=== PATIENT | male | born 1980 ===

== ENCOUNTER 2017-03-14 03:19 | Inpatient (IN) | payer BC ==
[2017-03-14 03:19] VITALS: BMI 29.0
[2017-03-14 04:29] LABS: BASO # 0.1 K/uL (0.0-0.2); EOS # 0.1 K/uL (0.0-0.7); EOS % 0.9 % (0.0-4.0); HEMATOCRIT 46.6 % (35.0-51.0); LYMPH # 2.1 K/uL (1.0-4.3); LYMPH % 26.7 % (20.0-40.0); MEAN CELL VOLUME 84.7 fl (80.0-94.0); MEAN CORPUSCULAR HEMOGLOBIN 29.5 pg (27.0-31.0); MEAN CORPUSCULAR HGB CONC 34.9 g/dL (33.0-37.0); MEAN PLATELET VOLUME 8.1 fl (7.2-11.7); MONO # 0.4 K/uL (0.0-0.8); MONO % 5.2 % (0.0-10.0); NEUT # 5.3 K/uL (1.8-7.0); NEUT % 66.2 % (50.0-75.0); NRBC % 0.1 % (0.0-0.0); RED CELL DISTRIBUTION WIDTH 13.2 % (11.5-14.5)
--- NOTE | 2017-03-14 04:37 | ED PDOC ---
HPI: Psych/Substance Abuse Time Seen by Provider: 03/14/17 03:29 Chief Complaint (Nursing): Psychiatric Evaluation Chief Complaint (Provider): Psychiatric Evaluation History Per: Patient History/Exam Limitations: no limitations Onset/Duration Of Symptoms: Hrs (prior to arrival ) Additional History Per: Family (mother) Additional Complaint(s): 3:29 Giovanny Moscoso, 36 year old male brought to ED by EMS for crisis eval . The patient reportedly planned to hang himself . He was also reported to have barricaded himself in his room for the past 1 week. He reports feeling depressed and has suicidal ideations. Patient's mother presents to the ED following patient's arrival to ED. He denies A/V hallucinations. Past Medical History Reviewed: Historical Data, Nursing Documentation, Vital Signs Vital Signs: Last Vital Signs Temp 97.7 F 03/14/17 03:27 Pulse 120 H 03/14/17 03:27 Resp 18 03/14/17 03:27 BP 154/93 H 03/14/17 03:27 Pulse Ox 98 03/14/17 03:27 - Medical History PMH: Anxiety, Bipolar Disorder, Depression Denies: Diabetes, Hepatitis, HIV, HTN, Seizures, Sexually Transmitted Disease - Surgical History Surgical History: No Surg Hx - Family History Family History: States: Unknown Family Hx - Home Medications Home Medications: Ambulatory Orders Medication Instructions Recorded Gabapentin [Neurontin] 600 mg PO TID #90 tab 10/13/16 QUEtiapine [SEROquel] 300 mg PO HS #30 tab 10/13/16 Sertraline [Zoloft] 50 mg PO DAILY #30 tab 10/13/16 - Allergies Allergies/Adverse Reactions: Allergies Allergy/AdvReac Type Severity Reaction Status Date / Time No Known Allergies Allergy Verified 03/14/17 03:26 Review of Systems ROS Statement: Except As Marked, All Systems Reviewed And Found Negative Psych: Positive for: Suicidal ideation Physical Exam - Reviewed Nursing Documentation Reviewed: Yes Vital Signs Reviewed: Yes - Physical Exam Appears: Positive for: Non-toxic, No Acute Distress Head Exam: Positive for: ATRAUMATIC, NORMOCEPHALIC Skin: Positive for: Normal Color, Warm, Dry Eye Exam: Positive for: Normal appearance ENT: Positive for: Normal ENT Inspection Neck: Positive for: Normal, Painless ROM, Supple Cardiovascular/Chest: Positive for: Regular Rate, Rhythm, Chest Non Tender Respiratory: Positive for: Normal Breath Sounds. Negative for: Respiratory Distress Gastrointestinal/Abdominal: Positive for: Normal Exam, Soft. Negative for: Tenderness Back: Positive for: Normal Inspection Extremity: Positive for: Normal ROM. Negative for: Deformity Neurologic/Psych: Positive for: Alert, Oriented (x3) - Laboratory Results Result Diagrams: 03/14/17 04:21 03/14/17 04:21 - ECG O2 Sat by Pulse Oximetry: 98 (RA) Pulse Ox Interpretation: Normal Medical Decision Making Medical Decision Makin:29 Initial Impression: 36 year old male with a history of depression. Initial Plan: * Alcohol Serum Stat * CMP Stat * Drug Screen, Urine Stat * CBC (With Differential) Stat * Accucheck Stat * 1:1 Obs for Suicide Precaution Cont Labs reviewed show no clinically significant abnormalities Patient evaluated by crisis and will require admission pending consent on sobriety Dx Major Depression Fair Patient is medeically stable for psychiatric admission Scribe Attestation: Documented by Nikki Valencia, acting as a scribe for Bassam Guaman MD. Provider Scribe Attestation: All medical record entries made by the Scribe were at my direction and personally dictated by me. I have reviewed the chart and agree that the record accurately reflects my personal performance of the history, physical exam, medical decision making, and the department course for this patient. I have also personally directed, reviewed, and agree with the discharge instructions and disposition. ED OBSERVATION Date of observation admission: 03/14/17 Time of observation admission: 04:00 - Observation admission statement Patient is being placed in observation because:: Time-extensive ED evaluation. - Goals of Observation Goals of observation are:: Results of ED workup, crisis evaluation, and eventual disposition. Disposition - Clinical Impression Clinical Impression: Major depression - Patient ED Disposition Is Patient to be Admitted: No - Disposition Disposition Time: 07:00 Condition: FAIR - Pt Status Changed To: Hospital Disposition Of: Inpatient - Admit Certification Admit to Inpatient:: After my assessment, the patient will require hospitalization for at least two midnights. This is because of the severity of symptoms shown, intensity of services needed, and/or the medical risk in this patient being treated as an outpatient. - POA Present On Arrival: None
[2017-03-14 04:42] LABS: ALB/GLOB RATIO 1.4 (1.0-2.1); ALCOHOL SERUM 243 mg/dl (0-10); ALKALINE PHOSPHATASE 107 U/L (38-126); ALT/SGPT 60 U/L (21-72); AST/SGOT 60 U/L (17-59); BILIRUBIN,TOTAL 0.5 mg/dl (0.2-1.3); BLOOD UREA NITROGEN 15 mg/dl (9-20); CALCIUM 9.4 mg/dL (8.4-10.2); CARBON DIOXIDE 25 mmol/L (22-30); CHLORIDE 103 mmol/L (98-107); GFR AFRICAN-AMERICAN > 60; GLUCOSE,RANDOM 103 mg/dL (75-110); POTASSIUM 3.8 MMOL/L (3.6-5.0); SODIUM 146 mmol/l (132-148); TOTAL PROTEIN 8.2 G/DL (6.3-8.2)
--- NOTE | 2017-03-14 06:31 | ED PDOC ---
- Laboratory Results Result Diagrams: 03/14/17 04:21 03/14/17 04:21 - ECG O2 Sat by Pulse Oximetry: 98 (RA) Pulse Ox Interpretation: Normal Medical Decision Making Medical Decision Makin:30 Patient signed out to Provider by Arleth Michel PA-C. 7:00 Patient signed out to Dr. Dwyer. Scribe Attestation: Documented by Nikki Valencia, acting as a scribe for Bassam Guaman MD. Provider Scribe Attestation: All medical record entries made by the Scribe were at my direction and personally dictated by me. I have reviewed the chart and agree that the record accurately reflects my personal performance of the history, physical exam, medical decision making, and the department course for this patient. I have also personally directed, reviewed, and agree with the discharge instructions and disposition. Disposition - Clinical Impression Clinical Impression: Major depression - POA Present On Arrival: None - Disposition Disposition: Routine/Home Disposition Time: 05:00 Condition: FAIR
[2017-03-14] MEDS ORDERED: DiphenhydrAMINE 50 mg/ml Inj IM PRN (11:57)
[2017-03-14] MEDS ORDERED: Alum-Mag Hydrox-Simethicone Susp (30 mL) PO PRN (11:57)
[2017-03-14] MEDS ORDERED: Magnesium Hydroxide Susp 30 ml UD PO PRN (11:57)
--- NOTE | 2017-03-14 12:08 | PCM.PSYCH ---
Initial Psychiatric Evaluation - Initial Psychiatric Evaluation Type of Admission: Voluntary Legal Status: Capacity Chief Complaint (in patient's own words): i locked myself in a room for a week Patient's Reaction to Hospitalization: cooperative History of Present Illness and Precipitating Events: pt with history of alcohol dependence, substance abuse, bipolar disorder. has been hospitalized in may 2016 and september 2016 here at [facility]. pt states he was sober until about a month ago. he did not follow up with outpt referrals. he states he was starting to become depressed and overwhelmed- bills, has another dui and will have to wear an ankle bracelet and has lost license for 10 years. pt states he became more depressed, hopeless and suicidal. he states for the last week he locked himself in his room and drank alcohol every day. he states he had razors and had thoughts to cut his own wrists or neck. he states his mother finally called the police who brought him here. the patient is seeking help. Current Medications: Active Medications Generic Name Dose Route Start Last Admin Trade Name Wesleyq PRN Reason Stop Dose Admin Acetaminophen 650 mg 03/14/17 11:57 Tylenol 325mg Tab PO Q4 PRN Pain, moderate (4-7) Al Hydrox/Mg Hydrox/Simethicone 30 ml 03/14/17 11:57 Maalox Plus 30 Ml PO Q4 PRN Dyspepsia Diphenhydramine HCl 50 mg 03/14/17 11:57 Benadryl IM Q6 PRN Extrapyramidal S/S Unable PO Diphenhydramine HCl 50 mg 03/14/17 11:57 Benadryl PO Q6 PRN Extrapyramidal Symptoms Folic Acid 1 mg 03/14/17 12:00 Folic Acid PO DAILY MARCIA Haloperidol 5 mg 03/14/17 11:57 Haldol PO Q4 PRN Agitation Haloperidol Lactate 5 mg 03/14/17 11:57 Haldol IM Q4 PRN Agitation, Unable to Take PO Lorazepam 2 mg 03/14/17 11:57 Ativan IM Q4 PRN Anxiety/Agitation,Unable PO Lorazepam 2 mg 03/14/17 11:57 Ativan PO Q4 PRN Anxiety/Agitation Magnesium Hydroxide 30 ml 03/14/17 11:57 Milk Of Magnesia PO HS PRN Constipation Multivitamins/Minerals 1 tab 03/14/17 12:00 Therapeutic-M Tab PO DAILY MARCIA Thiamine HCl 100 mg 03/14/17 12:00 Vitamin B1 Tab PO DAILY MARCIA Past Psychiatric History - Past Psychiatric History Previous Treatment History: Inpatient History of Abuse: denies History of ETOH/Drug Use: drinks alcohol daily- has been drinking "bottles of hennesy" history of abusing xanax and cocaine- denies any recent use denies use of cigarettes History of Family Illness: denies Pertinent Medical Hx (Current Medical&Sleep Prob, Allergies): Allergies Allergy/AdvReac Type Severity Reaction Status Date / Time No Known Allergies Allergy Verified 03/14/17 03:26 Gabapentin [Neurontin] 600 mg PO TID #90 tab 10/13/16 QUEtiapine [SEROquel] 300 mg PO HS #30 tab 10/13/16 Sertraline [Zoloft] 50 mg PO DAILY #30 tab 10/13/16 Review of Systems - Psychiatric Psychiatric: As Per HPI Mental Status Examination - Personal Presentation Personal Presentation: Looks stated age - Affect Affect: Blunted - Motor Activity Motor Activity: Calm - Reliability in Providing Information Reliability in Providing Information: Good - Speech Speech: Organized - Mood Mood: Depressed, Anxious - Formal Thought Process Formal Thought Process: No Impairment - Obsessions/Compulsions Obsessions: No Compulsions: No - Cognitive Functions Orientation: Person, Place, Situation, Time Sensorium: Alert Attention/Concentration: Attentive Abstract Thinking: Rose Estimate of Intelligence: Average Judgement: Imparied, as evidence by: Poor judgement, Intact, as evidence by: Insight regarding need for hospitalization Memory: Recent intact, as evidence by: Ability to recall events of the day, Remote intact, as evidenced by: Abilit to recall sig. life events - Risk Risk: Suicidal, Withdrawal, Diminished functioning Additional comments: feels safe in the hospital, denies any intent and is seeking help. has young son who he states is a protective factor - Strength & Assets Inventory Strength & Assets Inventory: Intelligence, Family support - Limitations Limitations: Other (legal stressors) DSM 5 DX - DSM 5 DSM 5 Diagnosis: alcohol dependence bipolar disorder - Recommended/Plan of Treatment Treatment Recommendations and Plan of Treatment: admit to [facility] for safety and observation gather collateral information provide supportive therapy adjust medications- ativan for etoh withdrawal. restart previous medications when more stable in terms of his withdrawal. hospitalist consult disposition planning Projected ELOS: 5-7 days Prognosis: fair - Smoking Cessation Smoking Cessation Initiated: No Reason for not providing: does not smoke
[2017-03-14] MEDS: Multivitamin With Minerals Tab PO SCH (13:34)
--- NOTE | 2017-03-14 13:36 | CP.PCM.CON ---
History of Present Illness - History of Present Illness History of Present Illness: Reason for consult: per hospital protocol 36 y/o male with PMH bipolar disorder, multi substance abuse, multiple psych admissions, admits to being depressed and heavily drinking the past month after not following up outpatient. Mother called police and patient is now seeking help. vitals stable, no acute distress. ROS: per HPI all other systems neg by me. PMH Bipolar disorder, multiple substance abuse, ETOH, Cocaine, xanax Medications None Family history None Social history Lives with aunt a, and 2 year old child, Syrian, employed ,denies smoking ETOH abuse - heavy Temp Pulse Resp BP Pulse Ox 98.5 F 102 H 19 125/62 96 03/14/17 11:15 03/14/17 11:15 03/14/17 11:15 03/14/17 11:15 03/14/17 08:16 Appears: Non-toxic, No Acute Distress Head Exam: ATRAUMATIC, NORMOCEPHALIC Skin: Normal Color, Warm Eye Exam: Normal appearance, EOMI, PERRL Cardiovascular/Chest: Regular Rate, Rhythm. Negative for: Murmur Respiratory: Normal Breath Sounds. Negative for: Wheezing Gastrointestinal/Abdominal: Soft. Negative for: Tenderness Neurologic/Psych: Alert, Oriented, calm and cooperative 03/14/17 04:21 03/14/17 04:21 36 y/o male with PMH bipolar disorder, multi substance abuse, multiple psych admissions, admits to being depressed and heavily drinking the past month after not following up outpatient. Patient is seeking help. vitals stable, no acute distress. Depression Suicidal Ideation Management per psych Past Patient History - Infectious Disease Hx of Infectious Diseases: None - Tetanus Immunizations Tetanus Immunization: Unknown - Past Medical History & Family History Past Medical History?: Yes - Past Social History Smoking Status: Never Smoked - CARDIAC Hx Cardiac Disorders: No - PULMONARY Hx Tuberculosis: No - NEUROLOGICAL Hx Seizures: No - HEMATOLOGICAL/ONCOLOGICAL Hx Human Immunodeficiency Virus (HIV): No - GENITOURINARY/GYNECOLOGICAL Hx Sexually Transmitted Disorders: No - PSYCHIATRIC Hx Psychophysiologic Disorder: Yes - SURGICAL HISTORY Hx Surgeries: Yes Hx Musculoskeletal Surgery: Yes (Right knee) - ANESTHESIA Hx Anesthesia: Yes Hx Anesthesia Reactions: No Meds Allergies/Adverse Reactions: Allergies Allergy/AdvReac Type Severity Reaction Status Date / Time No Known Allergies Allergy Verified 03/14/17 03:26 - Medications Medications: Current Medications Acetaminophen (Tylenol 325mg Tab) 650 mg PO Q4 PRN PRN Reason: Pain, moderate (4-7) Al Hydrox/Mg Hydrox/Simethicone (Maalox Plus 30 Ml) 30 ml PO Q4 PRN PRN Reason: Dyspepsia Diphenhydramine HCl (Benadryl) 50 mg IM Q6 PRN PRN Reason: Extrapyramidal S/S Unable PO Diphenhydramine HCl (Benadryl) 50 mg PO Q6 PRN PRN Reason: Extrapyramidal Symptoms Folic Acid (Folic Acid) 1 mg PO DAILY MARCIA Haloperidol (Haldol) 5 mg PO Q4 PRN PRN Reason: Agitation Haloperidol Lactate (Haldol) 5 mg IM Q4 PRN PRN Reason: Agitation, Unable to Take PO Lorazepam (Ativan) 2 mg IM Q4 PRN PRN Reason: Anxiety/Agitation,Unable PO Lorazepam (Ativan) 2 mg PO Q4 PRN PRN Reason: Anxiety/Agitation Lorazepam (Ativan) 1 mg PO BIDHS [facility] Magnesium Hydroxide (Milk Of Magnesia) 30 ml PO HS PRN PRN Reason: Constipation Multivitamins/Minerals (Therapeutic-M Tab) 1 tab PO DAILY [facility] Thiamine HCl (Vitamin B1 Tab) 100 mg PO DAILY [facility] Results - Vital Signs Recent Vital Signs: Last Vital Signs Temp 98.5 F 03/14/17 11:15 Pulse 102 H 03/14/17 11:15 Resp 19 03/14/17 11:15 BP 125/62 03/14/17 11:15 Pulse Ox 96 03/14/17 08:16 - Labs Result Diagrams: 03/14/17 04:21 03/14/17 04:21 Labs: Laboratory Results - last 24 hr 03/14/17 09:00 Urine Opiates Screen Negative Urine Methadone Screen Negative Ur Barbiturates Screen Negative Ur Phencyclidine Scrn Negative Ur Amphetamines Screen Negative U Benzodiazepines Scrn Negative U Oth Cocaine Metabols Negative U Cannabinoids Screen Negative
[2017-03-15 08:22] LABS: THYROID STIMULATING HORMONE 6.82 mIU/ML (0.46-4.68)
--- NOTE | 2017-03-15 11:18 | PCM.PYCHPN ---
Psychiatric Progress Note - Psychiatric Progress Note Patient seen today, length of contact: discussed with team Patient Chief Complaint: i feel a little better Problems Identified/Issues Discussed: pt states he is feeling less shaky. feels anxious about his legal issues and about work. he isolates in his room. Medication Change: No Medical Record Reviewed: Yes Mental Status Examination - Cognitive Function Orientation: Person, Place, Situation, Time Memory: Intact Attention: WNL Concentration: WNL Association: WNL Fund of Knowledge: [facility] Decription of patient's judgement and insights: fair - Mood Mood: Depressed, Anxious - Affect Affect: Blunted - Speech Speech: Appropriate - Formal Thought Process Formal Thought Process: No Impairment Psychotic Thoughts and Behaviors: denies a/v hallucinations - Suicidal Ideation Suicidal Ideation: No - Homicidal Ideation Homicidal Ideation: No Goal/Treatment Plan - Goal/Treatment Plan Need for Continued Stay: Remain at risks for inpatient hospitalization, Discharge may exacerbated symptoms Progress Toward Problem(s) and Goals/Treatment Plan: alcohol dependence bipolar disorder will restart seroquel continue ativan for alcohol withdrawal Estimated Date of D/C: 03/20/17
[2017-03-15] MEDS: Multivitamin With Minerals Tab PO SCH (11:56)
[2017-03-15 20:25] VITALS: O2SAT 98
[2017-03-16] MEDS: Multivitamin With Minerals Tab PO SCH (09:08)
--- NOTE | 2017-03-16 13:57 | PCM.PYCHPN ---
Psychiatric Progress Note - Psychiatric Progress Note Patient seen today, length of contact: in treatment team Patient Chief Complaint: i lost my grandfather who raised me Problems Identified/Issues Discussed: pt states withdrawal symptoms improving. fair sleep. depressed. feels overwhelmed with loss of grandfather and cant handle stress of everyday life. minimizing his loss of control over his drinking. Medication Change: No Medical Record Reviewed: Yes Mental Status Examination - Cognitive Function Orientation: Person, Place, Situation, Time Memory: Intact Attention: WNL Concentration: WNL Association: WNL Fund of Knowledge: [facility] Decription of patient's judgement and insights: fair - Mood Mood: Depressed, Anxious - Affect Affect: Blunted - Speech Speech: Appropriate - Formal Thought Process Formal Thought Process: No Impairment Psychotic Thoughts and Behaviors: denies a/v hallucinations - Suicidal Ideation Suicidal Ideation: No - Homicidal Ideation Homicidal Ideation: No Goal/Treatment Plan - Goal/Treatment Plan Need for Continued Stay: Remain at risks for inpatient hospitalization, Discharge may exacerbated symptoms Progress Toward Problem(s) and Goals/Treatment Plan: alcohol dependence bipolar disorder continue seroquel restart neurontin and zoloft encourage participation in groups Estimated Date of D/C: 03/20/17
[2017-03-17] MEDS: Multivitamin With Minerals Tab PO SCH (09:21)
--- NOTE | 2017-03-17 10:46 | PCM.PYCHPN ---
Psychiatric Progress Note - Psychiatric Progress Note Patient seen today, length of contact: discussed with team Patient Chief Complaint: i feel a little better today Problems Identified/Issues Discussed: pt is denying withdrawal symptoms. he states he slept well last night. denies side effects with his medications. Medication Change: No Medical Record Reviewed: Yes Mental Status Examination - Cognitive Function Orientation: Person, Place, Situation, Time Memory: Intact Attention: WNL Concentration: WNL Association: WNL Fund of Knowledge: [facility] Decription of patient's judgement and insights: fair - Mood Mood: Depressed, Anxious - Affect Affect: Blunted - Speech Speech: Appropriate - Formal Thought Process Formal Thought Process: No Impairment Psychotic Thoughts and Behaviors: denies a/v hallucinations - Suicidal Ideation Suicidal Ideation: No - Homicidal Ideation Homicidal Ideation: No Goal/Treatment Plan - Goal/Treatment Plan Need for Continued Stay: Remain at risks for inpatient hospitalization, Discharge may exacerbated symptoms Progress Toward Problem(s) and Goals/Treatment Plan: alcohol dependence bipolar disorder continue seroquel continue neurontin and zoloft encourage participation in groups Estimated Date of D/C: 03/20/17
[2017-03-18] MEDS: Multivitamin With Minerals Tab PO SCH (09:03)
--- NOTE | 2017-03-18 09:46 | PCM.PYCHPN ---
Psychiatric Progress Note - Psychiatric Progress Note Patient seen today, length of contact: discussed with team Patient Chief Complaint: i am anxious Problems Identified/Issues Discussed: pt is denying withdrawal symptoms. he is focused on anxiety. wants anxiety medications more frequently. reports improved sleep. denies medication side effects. Medication Change: Yes (inc. neurontin to tid and hs) Medical Record Reviewed: Yes Mental Status Examination - Cognitive Function Orientation: Person, Place, Situation, Time Memory: Intact Attention: WNL Concentration: WNL Association: WNL Fund of Knowledge: [facility] Decription of patient's judgement and insights: fair - Mood Mood: Depressed, Anxious - Affect Affect: Blunted - Speech Speech: Appropriate - Formal Thought Process Formal Thought Process: No Impairment Psychotic Thoughts and Behaviors: denies a/v hallucinations - Suicidal Ideation Suicidal Ideation: No - Homicidal Ideation Homicidal Ideation: No Goal/Treatment Plan - Goal/Treatment Plan Need for Continued Stay: Remain at risks for inpatient hospitalization, Discharge may exacerbated symptoms Progress Toward Problem(s) and Goals/Treatment Plan: alcohol dependence bipolar disorder continue seroquel continue neurontin and zoloft- will increase neurontin to tid and hs. will increase zoloft tomorrow will taper ativan tomorrow encourage participation in groups Estimated Date of D/C: 03/24/17
[2017-03-19] MEDS: Multivitamin With Minerals Tab PO SCH (09:32)
--- NOTE | 2017-03-19 09:57 | PCM.PYCHPN ---
Psychiatric Progress Note - Psychiatric Progress Note Patient seen today, length of contact: discussed with team Patient Chief Complaint: i feel less anxious today Problems Identified/Issues Discussed: pt is states the withdrawal symptoms are minimal. he reports feeling less anxious in the day. he attends groups. pt reports waking up early and not being able to return to sleep. Medication Change: Yes (inc. seroquel) Medical Record Reviewed: Yes Mental Status Examination - Cognitive Function Orientation: Person, Place, Situation, Time Memory: Intact Attention: WNL Concentration: WNL Association: WN Fund of Knowledge: [facility] Decription of patient's judgement and insights: fair - Mood Mood: Depressed, Anxious - Affect Affect: Blunted - Speech Speech: Appropriate - Formal Thought Process Formal Thought Process: No Impairment Psychotic Thoughts and Behaviors: denies a/v hallucinations - Suicidal Ideation Suicidal Ideation: No - Homicidal Ideation Homicidal Ideation: No Goal/Treatment Plan - Goal/Treatment Plan Need for Continued Stay: Remain at risks for inpatient hospitalization, Discharge may exacerbated symptoms Progress Toward Problem(s) and Goals/Treatment Plan: alcohol dependence bipolar disorder continue seroquel and will increase dose to 100mg hs continue neurontin and zoloft- will taper ativan to 0.5mg bid encourage participation in groups Estimated Date of D/C: 03/24/17
[2017-03-20] MEDS: Multivitamin With Minerals Tab PO SCH (09:32)
--- NOTE | 2017-03-20 12:10 | PCM.PYCHPN ---
Psychiatric Progress Note - Psychiatric Progress Note Patient seen today, length of contact: discussed with team Patient Chief Complaint: i feel a little better Problems Identified/Issues Discussed: pt still anxious. some difficult sleep. feels overwhelmed with his personal life /work/legal problems. some suicidal thoughts, but feels more hopeful. agreeable to medication changes Medication Change: Yes (inc. seroquel and zoloft) Medical Record Reviewed: Yes Mental Status Examination - Cognitive Function Orientation: Person, Place, Situation, Time Memory: Intact Attention: WNL Concentration: WNL Association: WNL Fund of Knowledge: [facility] Decription of patient's judgement and insights: fair - Mood Mood: Depressed, Anxious - Affect Affect: Blunted - Speech Speech: Appropriate - Formal Thought Process Formal Thought Process: No Impairment Psychotic Thoughts and Behaviors: denies a/v hallucinations - Suicidal Ideation Suicidal Ideation: No - Homicidal Ideation Homicidal Ideation: No Goal/Treatment Plan - Goal/Treatment Plan Need for Continued Stay: Remain at risks for inpatient hospitalization, Discharge may exacerbated symptoms Progress Toward Problem(s) and Goals/Treatment Plan: alcohol dependence bipolar disorder continue seroquel and will increase dose to 150mg hs continue neurontin and zoloft with increase to 50mg daily will taper ativan to 0.5mg bid encourage participation in groups Estimated Date of D/C: 03/24/17
[2017-03-21] MEDS: Multivitamin With Minerals Tab PO SCH (09:38)
--- NOTE | 2017-03-21 18:30 | PCM.PYCHPN ---
Psychiatric Progress Note - Psychiatric Progress Note Patient seen today, length of contact: chart reviewed case discussed with team 35min Patient Chief Complaint: alteration in mood after of grandfather and increased etoh Problems Identified/Issues Discussed: changes in mood, missed one week of work, feeling sad, of grandfather recently and father reportedly being killed in front of pt when pt was child Medical Problems: per chart elevated tsh Diagnostic Results: per psychiatry per medicine per nursing per social work Medical Record Reviewed: Yes Consults ordered or reviewed: cam endocrine elevated tsh Mental Status Examination - Cognitive Function Orientation: Person, Place, Situation, Time Memory: Intact Attention: WNL Concentration: WNL Association: [facility] Fund of Knowledge: [facility] Decription of patient's judgement and insights: impaired - Mood Mood: Anxious - Affect Affect: Blunted - Speech Speech: Appropriate - Formal Thought Process Formal Thought Process: No Impairment - Suicidal Ideation Suicidal Ideation: No - Homicidal Ideation Homicidal Ideation: No Goal/Treatment Plan - Goal/Treatment Plan Need for Continued Stay: Remain at risks for inpatient hospitalization, Discharge may exacerbated symptoms Progress Toward Problem(s) and Goals/Treatment Plan: inpt milieu adjust meds per status vital signs and clinical observation per protocol and per status discharge planning in progress Estimated Date of D/C: 03/24/17 - Smoking Cessation Smoking Cessation Initiated: No Reason for not providing: deferred
[2017-03-22] MEDS: Levothyroxine 50 MCG TAB PO SCH (08:05)
[2017-03-22] MEDS: Multivitamin With Minerals Tab PO SCH (08:47)
[2017-03-22 08:53] VITALS: RESP 20
--- NOTE | 2017-03-22 09:07 | CON ---
DATE: 03/21/2017 ENDOCRINOLOGY CONSULT ROOM: 316, psychiatry. HISTORY OF PRESENT ILLNESS: This is a 36-year-old male with known history of bipolar disorder and po lysubstance abuse who presents here with progressively worsening behavioral disturbances with major d epression, and is now being referred for endocrine evaluation because of abnormal thyroid function [facility]. PAST MEDICAL HISTORY: As mentioned above, history of bipolar disorder with multiple psychiatric admi ssions for major depression, as noted thereof. FAMILY HISTORY: Positive for hypertension and heart disease. SOCIAL HISTORY: Has known history of polysubstance abuse with chronic alcoholism and recent acute al coholic intoxication with daily abuse of heavy liquor over the past week or so prior to admission. A lso, has nicotine abuse, and narcotic and analgesic use, and also with previous usage of Xanax medica tion. Also admits to previous cocaine abuse. SOCIAL HISTORY: The patient has a very supportive family otherwise. REVIEW OF SYSTEMS: Admits to generalized body weakness with easy fatigability and tiredness, and sub optimal energy level with increasing insomnia and bifrontal headaches. No chest pains or palpitation s or PNDs. His oral intake is variable and suboptimal with dyspepsia and habitual constipation. PHYSICAL EXAMINATION: GENERAL: An average built male in no apparent distress. VITAL SIGNS: Blood pressure of 140/80, pulse of 84 beats per minute and regular, temperature 98, res pirations 20. Height is 5 feet 10 inches. Weight is 190 pounds. HEENT: Head normocephalic. Eyes anicteric with pink conjunctivae. Fundoscopy not possible at this time. Ears, nose, and throat otherwise normal. NECK: Supple. Thyroid gland is normal size. No carotid bruits. No cervical adenopathy. CARDIOPULMONARY: Has adynamic precordium. S1, S2 is rapid and regular. LUNGS: Clear to auscultation. ABDOMEN: Flat, soft with positive bowel sounds. EXTREMITIES: No peripheral edema. Pulses are +2 bilaterally. LABORATORY DATA: The chemistry showed a BUN of 15, sodium 146, potassium 3.8, chloride 103, CO2 of 2 5, glucose 103, and creatinine 0.9. His TSH level is 6.82 as noted. ASSESSMENT: This is a 36-year-old male with major depression and recent suicidal ideations on the ckground of chronic bipolar disorder and multiple psychiatric admissions for the same, and is now fabio ng referred for endocrine evaluation as noted thereof. He remains clinically euthyroid at this time with no overt thyromegaly or palpable thyroid nodules. However, biochemically he has evidence of ear ly hypothyroidism as noted thereof. This is most likely related to underlying autoimmune thyroiditis . PLAN OF MANAGEMENT: We will obtain a more comprehensive thyroid hormonal profile with a total T4 and free T4 and TSH tomorrow morning. We will also obtain a thyroid peroxidase antibody to confirm the presence of underlying thyroid autoimmunity. We will also start him right away on a very low dose of levothyroxine replacement therapy given as 50 mcg once daily before breakfast as ordered. We will o btain serial chemistries and supplement accordingly as needed. We will follow up. Helen Armstrong MD cc: [id number] TT: 03/22/2017 09:07:10 Confirmation # [id number] Dictation # [id number] jn
[2017-03-22 11:02] LABS: ALB/GLOB RATIO 1.5 (1.0-2.1); ALKALINE PHOSPHATASE 79 U/L (38-126); ALT/SGPT 211 U/L (21-72); AST/SGOT 67 U/L (17-59); BILIRUBIN,TOTAL 0.5 mg/dl (0.2-1.3); BLOOD UREA NITROGEN 16 mg/dl (9-20); CARBON DIOXIDE 30 mmol/L (22-30); CHLORIDE 100 mmol/L (98-107); GFR AFRICAN-AMERICAN > 60; GLUCOSE,RANDOM 68 mg/dL (75-110); POTASSIUM 4.1 MMOL/L (3.6-5.0); SODIUM 140 mmol/l (132-148); TOTAL PROTEIN 7.9 G/DL (6.3-8.2)
[2017-03-22 11:18] LABS: T4 9.14 ug/dl (5.5-11.0)
[2017-03-22 11:31] LABS: THYROID STIMULATING HORMONE 4.12 mIU/ML (0.46-4.68)
--- NOTE | 2017-03-22 11:36 | PN ---
DATE: 03/22/2017 ROOM: 316, psychiatry. This is a 36-year-old male with major depression and associated behavioral disturbances and admitted here now for closer psychiatric evaluation and management and has been referred for endocrine evaluat ion because of abnormal thyroid function studies. His latest chemistries today showed a BUN of 15, sodium 146, potassium 3.8, chloride 103, CO2 25, glu cose 103 and creatinine 0.9. The initial TSH was 6.82. The thyroid studies ordered for today have y et to be undertaken as noted. ASSESSMENT: This is a 36-year-old male with overt hypothyroidism, both historically, clinically, and biochemically, most likely related to underlying autoimmune thyroiditis with moderate hypothyroidism as noted thereof. PLAN OF MANAGEMENT: We will continue the same low dose levothyroxine replacement therapy given as 50 mcg once daily before breakfast as ordered. We will titrate incrementally as indicated to optimize metabolic control. We will follow and advise accordingly. Helen Armstrong MD cc: [id number] TT: 03/22/2017 11:36:26 Confirmation # [id number] Dictation # [id number] en
--- NOTE | 2017-03-22 21:55 | PCM.PYCHPN ---
Psychiatric Progress Note - Psychiatric Progress Note Patient seen today, length of contact: chart reviewed case discussed with team 35min Patient Chief Complaint: alteration in mood after of grandfather and increased etoh denies withdrawal Problems Identified/Issues Discussed: changes in mood, missed one week of work, feeling sad, of grandfather recently and father reportedly being killed in front of pt when pt was child Medical Problems: per chart elevated tsh Diagnostic Results: per psychiatry per medicine per nursing per social work Medication Change: No Medical Record Reviewed: Yes Mental Status Examination - Cognitive Function Orientation: Person, Place, Situation, Time Memory: Intact Attention: WNL Concentration: WNL Association: [facility] Fund of Knowledge: [facility] Decription of patient's judgement and insights: impaired - Mood Mood: Anxious - Affect Affect: Blunted - Speech Speech: Appropriate - Formal Thought Process Formal Thought Process: No Impairment - Suicidal Ideation Suicidal Ideation: No - Homicidal Ideation Homicidal Ideation: No Goal/Treatment Plan - Goal/Treatment Plan Need for Continued Stay: Remain at risks for inpatient hospitalization, Discharge may exacerbated symptoms Progress Toward Problem(s) and Goals/Treatment Plan: inpt milieu adjust meds per status vital signs and clinical observation per protocol and per status discharge planning in progress Estimated Date of D/C: 03/24/17 - Smoking Cessation Smoking Cessation Initiated: No Reason for not providing: deferred
[2017-03-23] MEDS: Levothyroxine 50 MCG TAB PO SCH (09:45)
[2017-03-23] MEDS: Multivitamin With Minerals Tab PO SCH (09:45)
--- NOTE | 2017-03-23 11:09 | PCM.PYCHPN ---
Psychiatric Progress Note - Psychiatric Progress Note Patient seen today, length of contact: discussed with team Patient Chief Complaint: i feel back to normal Problems Identified/Issues Discussed: pt less anxious. states he is sleeping well. no withdrawal symptoms. pt feels better than prior to admission and is future oriented. Medication Change: No Medical Record Reviewed: Yes Mental Status Examination - Cognitive Function Orientation: Person, Place, Situation, Time Memory: Intact Attention: WNL Concentration: WNL Association: WNL Fund of Knowledge: [facility] Decription of patient's judgement and insights: fair - Mood Mood: Anxious - Affect Affect: Blunted - Speech Speech: Appropriate - Formal Thought Process Formal Thought Process: No Impairment Psychotic Thoughts and Behaviors: denies a/v hallucinations - Suicidal Ideation Suicidal Ideation: No - Homicidal Ideation Homicidal Ideation: No Goal/Treatment Plan - Goal/Treatment Plan Need for Continued Stay: Remain at risks for inpatient hospitalization, Discharge may exacerbated symptoms Progress Toward Problem(s) and Goals/Treatment Plan: alcohol dependence bipolar disorder continue seroquel at 150mg hs continue neurontin and zoloft will dc ativan encourage participation in groups Estimated Date of D/C: 03/24/17
--- NOTE | 2017-03-23 12:52 | PN ---
DATE: 03/23/2017 This is a 36-year-old male with generalized anxiety and major depression, presenting here with exacer bation of the same and undergoing closer psychiatric evaluation and management. He also has an incid ental finding of hypothyroidism, noted both historically, clinically, and biochemically and has been started on levothyroxine at a low dose of 50 mcg once daily as ordered. His latest chemistry showed a BUN of 16, sodium 140, potassium 4.1, chloride 100, CO2 30, glucose 68 and creatinine 1.0. His thy roid levels have ranged now from a T4 of 9.14 mcg/dL and a free T4 of 1.07. His TSH is 4.12. So at this time, we will continue the levothyroxine given at the modified dose of 50 mcg once daily in the morning as ordered. We will titrate incrementally as indicated to optimize metabolic control. We wi ll obtain serial chemistries and supplement accordingly as needed. We will also obtain serial thyroi d studies and titrate his dose regimen accordingly. We are awaiting the results of the thyroid antib odies, which will confirm and/or negate the presence of underlying thyroid autoimmunity. We will fol low. Helen Armstrong MD cc: [phone] TT: 03/23/2017 12:51:07 Confirmation # [id number] Dictation # [id number] shivam
[2017-03-24] MEDS: Levothyroxine 50 MCG TAB PO SCH (06:30)
[2017-03-24] MEDS: Multivitamin With Minerals Tab PO SCH (08:16)
[2017-03-24 08:56] VITALS: BP 117/70; PULSE 90; TEMP 96.6
--- NOTE | 2017-03-24 12:56 | PCM.PYCHDC ---
Mental Status Examination - Mental Status Examination Orientation: Person, Place, Situation, Time Memory: Intact Mood: Neutral Affect: Broad Speech: Appropriate Attention: WNL Concentration: WNL Association: WNL Fund of Knowledge: WNL Formal Thought Process: No Impairment Description of patient's judgement and insight: fair Psychotic Thoughts and Behaviors: denies a/v hallucinations Suicidal Ideation: No Current Homicidal Ideation?: No Plan: pt more hopeful. denies suicidal or homicidal thoughts, plan or intent Discharge Summary - Discharge Note Reason for Hospitalization: alcohol dependence, depression Consultations:: List each consultation separately and include: 1. Reason for request. 2. Findings. 3. Follow-up Consultations: seen by hospitalist Summary of Hospital Course include:: 1. Description of specific treatment plan utilized for patients during their course of treatmen. 2. Summarize the time- course for resolution of acute symptoms and/or regressed behaviors. 3. Describe issues identified and worked on during hospitalization. 4. Describe medication utilized. 5. Describe medical problems identified and treated. 6. Reassessment of suicide risk Summary of Hospital Course: pt with history of alcohol dependence, substance abuse, bipolar disorder. has been hospitalized in may 2016 and september 2016 here at [facility]. pt states he was sober until about a month ago. he did not follow up with outpt referrals. he states he was starting to become depressed and overwhelmed- bills, has another dui and will have to wear an ankle bracelet and has lost license for 10 years. pt states he became more depressed, hopeless and suicidal. he states for the last week he locked himself in his room and drank alcohol every day. he states he had razors and had thoughts to cut his own wrists or neck. he states his mother finally called the police who brought him here. the patient is seeking help. hospital course pt was admitted to [facility] and oriented to the unit. pt placed on routine safety protocols. pt started on ativan to detox from alcohol. he was started back on his previous psychiatric medications for his mood symptoms. he tolerated these medications. he did not have any complications from alcohol withdrawal. his mood improved and he was future oriented and goal directed. he was denying any suicidal or homicidal thoughts at the time of discharge. he was agreeing to attend aa meetings and to follow up with aftercare appointments. - Final Diagnosis (DSM 5) Condition upon Discharge: FAIR DSM 5: bipolar disorder alcohol dependence Disposition: HOME/ ROUTINE Follow-up Treatment Plan: follow up with aftercare appointments as directed take medications as prescribed do not use alcohol tobacco or other illicit substances call 911 if any suicidal or homicidal thoughts attend aa meetings daily Prescriptions/Medication Reconciliation: Folic Acid 1 mg PO DAILY #30 tab Gabapentin [Neurontin] 300 mg PO TID #90 cap Gabapentin [Neurontin] 400 mg PO HS #30 cap Levothyroxine [Synthroid] 50 mcg PO ACB #30 tab Multimineral/Multivitamin [Therapeutic-M Tab] 1 tab PO DAILY #30 tab QUEtiapine [Seroquel] 100 mg PO HS #30 tab Quetiapine Fumarate [Seroquel] 100 mg PO HS #30 tablet Sertraline [Zoloft] 50 mg PO DAILY #30 tab Thiamine [Vitamin B1 Tab] 100 mg PO DAILY #30 tab - Smoking Cessation Smoking Cessation Medication prescribed: No Reason for not providing: declines - Antipsychotic Medications Pt discharged on 2 or more routine antipsychotic medications: No
--- NOTE | 2017-03-24 15:09 | PN ---
DATE: 03/24/2017 ROOM: 316 This is a 36-year-old male with recent evaluation for hypothyroidism presenting here with major depre ssion on the background of chronic schizoaffective disorder and is now being followed closely for met abolic management. His chemistries have improved and the latest BUN is 16, sodium 140, potassium 4.1, chloride 100, CO2 30, glucose 68 and creatinine 1.0. His thyroid study showed a T4 of 9.14 with a TSH of 4.12 and a fr ee T4 of 1.07, all of which have improved remarkably since admission, and also since the initiation o f levothyroxine replacement therapy. So at this time, will continue the oral levothyroxine given as 50 mcg once daily before breakfast as ordered. He will follow with his medical doctor for outpatient medical and thyroid management. Helen Armstrong MD cc: [phone] TT: 03/24/2017 15:09:28 Confirmation # [id number] Dictation # [id number] neelam
== END 2017-03-24 17:09 | disposition home or self-care (01) | DRG 885 ==
LOC: H.ER 03:19 → H.ERHOLD 05:22 → H.PSYCH 11:34
PROVIDERS: ADMIT Psychiatry & Neurology Psychiatry; ATTEND Psychiatry & Neurology Psychiatry
PROC: HZ2ZZZZ Detoxification Services for Substance Abuse Treatment (ICD-10-PCS; principal; 2017-03-14)
PROC: GZHZZZZ Group Psychotherapy (ICD-10-PCS; 2017-03-14)
PROC: GZ56ZZZ Individual Psychotherapy, Supportive (ICD-10-PCS; 2017-03-14)
DX: F31.9 Bipolar disorder, unspecified (principal); R45.851 Suicidal ideations; F10.239 Alcohol dependence with withdrawal, unspecified; E06.3 Autoimmune thyroiditis; E03.9 Hypothyroidism, unspecified; F41.1 Generalized anxiety disorder; Y90.8 Blood alcohol level of 240 mg/100 ml or more; F19.10 Other psychoactive substance abuse, uncomplicated

== ENCOUNTER 2017-12-18 12:56 | Emergency (ER) | payer BC ==
[2017-12-18 12:56] VITALS: BMI 29.0
[2017-12-18 13:04] VITALS: RESP 16
[2017-12-18] MEDS ORDERED: guaiFENesin 200 mg/10 ml Syrup UD PO STA (14:38)
--- NOTE | 2017-12-18 15:07 | RAD ---
HISTORY: COMPARISON: No prior. TECHNIQUE: Chest PA and lateral FINDINGS: LINES AND TUBES: None. LUNG AND PLEURA: The lungs are well inflated. There is confluent airspace disease in the lower lobes. HEART AND MEDIASTINUM: The heart is not enlarged. The hilar and mediastinal contours are within normal limits. SKELETAL STRUCTURES: The bony structures are within normal limits for the patient's age. VISUALIZED UPPER ABDOMEN: Normal. OTHER FINDINGS: None. IMPRESSION: Confluent airspace disease in the lower lobes concerning for pneumonia. Follow-up to resolution is advised.
[2017-12-18] MEDS ORDERED: Albuterol-Ipratrop 3 mg / 0.5 (3 ml) UD INH STA (15:29)
--- NOTE | 2017-12-18 15:33 | ED PDOC ---
HPI: CCC, URI, Sore Throat Time Seen by Provider: 12/18/17 13:27 Chief Complaint (Nursing): Cough, Cold, Congestion Chief Complaint (Provider): Cough, Cold, Congestion History Per: Patient History/Exam Limitations: no limitations Have you had recent travel within the past 21 days to any of the following countries: [place], [place], [place] or [place]?: No Onset/Duration Of Symptoms: Days (x1 week) Current Symptoms Are (Timing): Still Present Sick Contacts (Context): Family Member(s) (son) Associated Symptoms: Fever, Chills, Sore Throat, Cough, Sputum, Myalgias, Nasal Congestion. denies: Neck Pain, Nausea, Vomiting, Diarrhea Additional Complaint(s): 37 year old male with medical history of bipolar disorder and depression, presents to the emergency department with a complaint of cough associated with green phlegm, sore throat, tactile fever, chills, headache, bodyaches ongoing for 1 week. Denied any vomiting, diarrhea, abdominal pain, urinary issues, ear pain or recent travel. Patient stated he took Advil for pain relief with last dose at 0800 earlier today. Patient also reported son is sick at home with similar symptoms. PMD: none provided Past Medical History Reviewed: Historical Data, Nursing Documentation, Vital Signs Vital Signs: Last Vital Signs Temp 99.3 F 12/18/17 17:11 Pulse 99 H 12/18/17 16:22 Resp 16 12/18/17 13:03 BP 100/69 12/18/17 16:22 Pulse Ox 98 12/18/17 21:02 - Medical History PMH: Anxiety, Bipolar Disorder, Depression Denies: Diabetes, Hepatitis, HIV, HTN, Kidney Stones, Chronic Kidney Disease , Seizures - Surgical History Surgical History: No Surg Hx - Family History Family History: States: Unknown Family Hx - Living Arrangements Living Arrangements: With Family - Social History Current smoker - smoking cessation education provided: No Alcohol: None Drugs: Denies - Home Medications Home Medications: Ambulatory Orders Medication Instructions Recorded Folic Acid 1 mg PO DAILY #30 tab 03/24/17 Gabapentin [Neurontin] 300 mg PO TID #90 cap 03/24/17 Gabapentin [Neurontin] 400 mg PO HS #30 cap 03/24/17 Levothyroxine [Synthroid] 50 mcg PO ACB #30 tab 05/30/17 Multimineral/Multivitamin 1 tab PO DAILY #30 tab 03/24/17 [Therapeutic-M Tab] QUEtiapine [Seroquel] 100 mg PO HS #30 tab 03/24/17 Quetiapine Fumarate [Seroquel] 100 mg PO HS #30 tablet 03/24/17 Sertraline [Zoloft] 50 mg PO DAILY #30 tab 03/24/17 Thiamine [Vitamin B1 Tab] 100 mg PO DAILY #30 tab 03/24/17 Azithromycin [Zithromax] 250 mg PO DAILY #6 tab 12/18/17 Ibuprofen [Motrin Tab] 600 mg PO TID PRN #20 tab 12/18/17 Promethazine DM [Phenergan DM 10 ml PO Q6 #200 ml 12/18/17 Syrup] - Allergies Allergies/Adverse Reactions: Allergies Allergy/AdvReac Type Severity Reaction Status Date / Time No Known Allergies Allergy Verified 03/14/17 03:26 Review of Systems ROS Statement: Except As Marked, All Systems Reviewed And Found Negative Constitutional: Positive for: Fever (tactile), Chills, Sweats, Other ( generalized bodyaches) ENT: Positive for: Throat Pain. Negative for: Ear Pain Cardiovascular: Negative for: Chest Pain Respiratory: Positive for: Cough, Sputum (green). Negative for: Shortness of Breath Gastrointestinal: Negative for: Vomiting, Abdominal Pain, Diarrhea Genitourinary Male: Negative for: Dysuria, Incontinence, Hematuria Musculoskeletal: Negative for: Neck Pain Skin: Negative for: Rash Neurological: Positive for: Headache Physical Exam - Reviewed Nursing Documentation Reviewed: Yes Vital Signs Reviewed: Yes - Physical Exam Appears: Positive for: Well, Non-toxic, No Acute Distress Head Exam: Positive for: ATRAUMATIC, NORMOCEPHALIC Skin: Positive for: Normal Color, Warm, Dry. Negative for: Diaphoresis Eye Exam: Positive for: EOMI, PERRL. Negative for: Periorbital swelling ENT: Positive for: Normal ENT Inspection, Pharynx Is (clear, uvula midline.), TM Is/Are (clear bilaterally). Negative for: Pharyngeal Erythema, Tonsillar Exudate Neck: Positive for: Painless ROM, Supple Cardiovascular/Chest: Positive for: Regular Rate, Rhythm. Negative for: Bradycardia Respiratory: Positive for: Normal Breath Sounds (speaking in full sentences, respirations even and nonlabored.). Negative for: Decreased Breath Sounds, Accessory Muscle Use, Crackles, Rales, Rhonchi, Stridor, Wheezing, Respiratory Distress Gastrointestinal/Abdominal: Positive for: Normal Exam, Soft. Negative for: Tenderness, Mass, Distended, Guarding Back: Negative for: L CVA Tenderness, R CVA Tenderness Extremity: Negative for: Deformity Neurologic/Psych: Positive for: Alert, Oriented, Mood/Affect (appropriate), Gait (steady). Negative for: Aphasia, Facial Droop - ECG O2 Sat by Pulse Oximetry: 98 (RA) Pulse Ox Interpretation: Normal Medical Decision Making Medical Decision Making: Initial Impression: Cough Initial Plan: * CXR * Robitussin 200mg PO * Toradol 30mg IM * Throat culture * Rapid strep Time: 1450 --Rapid strep: negative Time: 1506 --CXR FINDINGS: LINES AND TUBES: None. LUNG AND PLEURA: The lungs are well inflated. There is confluent airspace disease in the lower lobes. HEART AND MEDIASTINUM: The heart is not enlarged. The hilar and mediastinal contours are within normal limits. SKELETAL STRUCTURES: The bony structures are within normal limits for the patient's age. VISUALIZED UPPER ABDOMEN: Normal. OTHER FINDINGS: None. IMPRESSION: Confluent airspace disease in the lower lobes concerning for pneumonia. Follow- up to resolution is advised. Time: 1529 --Zithromax 500mg and Duoneb 3ml ordered to treat pneumonia. Time: 1622 --Repeated vitals: 100.7 degrees TM temp. 99 HR; BP: 100/69. Time: 1632 --Repeated vitals: 100.6 degress TM temp. Time: 1711 --Repeated vitals: 99.3 degrees oral temp. Time: 1715 --Upon provider reevaluation, patient is medically stable and requires no further treatment in the ED at this time. Respirations are even and nonlabored, patient with no evidence of respiratory distress. Oxygen saturation 99% on RA. Patient will be discharged home with Rx for Zithromax 250mg, Motrin 600mg and Phenergan DM Syrup 10ml. Counseling was provided and all questions were answered regarding diagnosis and need for follow up with PMD. There is agreement to discharge plan. Return if symptoms persist or worsen. Clinical Impression: Pneumonia; Fever; Bodyaches Scribe Attestation: Documented by Helen Hernandez, acting as a scribe for Jaquelin Marin PA-C. Provider Scribe Attestation: All medical record entries made by the Scribe were at my direction and personally dictated by me. I have reviewed the chart and agree that the record accurately reflects my personal performance of the history, physical exam, medical decision making, and the department course for this patient. I have also personally directed, reviewed, and agree with the discharge instructions and disposition. Disposition - Clinical Impression Clinical Impression: Fever, Cough, Pneumonia, Body aches - Patient ED Disposition Is Patient to be Admitted: No Counseled Patient/Family Regarding: Studies Performed, Diagnosis, Need For Followup, Rx Given - Disposition Referrals: [facility] [Outside] Disposition: Routine/Home Disposition Time: 17:00 Condition: STABLE Prescriptions: Azithromycin [Zithromax] 250 mg PO DAILY #6 tab Ibuprofen [Motrin Tab] 600 mg PO TID PRN #20 tab PRN Reason: Fever >100.4 F Promethazine DM [Phenergan DM Syrup] 10 ml PO Q6 #200 ml Instructions: Pneumonia in Adults, Cough in Adults, Fever, Adult (DC) Forms: [facility] (Lithuanian) Print Language: MALAY - POJohnny Present On Arrival: None
[2017-12-18 16:23] VITALS: BP 100/69; PULSE 99
[2017-12-18] MEDS ORDERED: Albuterol-Ipratrop 3 mg / 0.5 (3 ml) UD ONE (16:29)
[2017-12-18 17:11] VITALS: TEMP 99.3
[2017-12-18 20:56] VITALS: O2SAT 98
== END 2017-12-18 17:18 | disposition home or self-care (01) ==
LOC: H.ER 12:56
DX: J18.9 Pneumonia, unspecified organism (principal); R50.9 Fever, unspecified; F31.9 Bipolar disorder, unspecified; F41.9 Anxiety disorder, unspecified
CPT/HCPCS: 71046; 87070; 87430; 94640; 96372; 99282; J1885